=== PATIENT | male | born 1960 | race Caucasian/White ===

== ENCOUNTER 2018-04-05 16:13 | Emergency (ER) | payer OTHER ==
[~2018-04-05] VITALS: Ht 177.8 cm; Wt 81.0 kg
[2018-04-05] MEDS ORDERED: PROPAFENONE 15150 MG PO (16:22)
[2018-04-05] MEDS ORDERED: ZOCOR20 MG PO (16:22)
[2018-04-05] MEDS ORDERED: COZAAR 50 MG TA50 M2 PO (16:23)
[2018-04-05] MEDS ORDERED: COUMADIN 5 MG TA5 M1 PO (16:24)
[2018-04-05] MEDS ORDERED: COUMADIN7.5 MG PO (16:25)
[2018-04-05] MEDS ORDERED: TOPROL XL25 MG PO (16:26)
[2018-04-05 16:38] LABS: HEMATOCRIT 44.8 % (42.0-52.0); HEMOGLOBIN 15.1 gm/dL (14.0-18.0); MCH 32.4 pg (26.0-34.0); MCHC 33.8 g/dL (28.0-37.0); MCV 95.8 fL (80.0-100.0); NUCLEATED RBCS 0 /100WBC; PLATELET COUNT* 131 thou/uL (150-400); RBC 4.68 mil/uL (4.50-6.00); RDW-CV 13.3 % (10.5-14.5); WBC 4.8 thou/uL (4.0-11.0)
[2018-04-05 16:47] LABS: ANION GAP 4 mmol/L (7-16); BUN 22 mg/dL (7-18); CALCIUM 8.3 mg/dL (8.5-10.1); CHLORIDE 100 mmol/L (98-107); CO2 30 mmol/L (21-32); CREATININE 1.1 mg/dL (0.6-1.3); GLUCOSE 104 mg/dL (70-99); POTASSIUM 4.3 mmol/L (3.5-5.1); SODIUM 134 mmol/L (136-145)
[2018-04-05 16:48] LABS: APTT 36.2 Seconds (25.0-31.3); INR 1.5
[2018-04-05 16:54] LABS: ALBUMIN 3.5 g/dL (3.4-5.0); ALKALINE PHOSPHATASE 98 U/L (46-116); SGOT 56 U/L (15-37); SGPT 57 U/L (30-65); TOTAL BILIRUBIN 1.4 mg/dL (<0.1-1.0); TOTAL PROTEIN 7.1 g/dL (6.4-8.2); TROPONIN-I LEVEL <0.06 ng/mL (<0.06)
[2018-04-05 17:21] LABS: ABSOLUTE LYMPHOCYTES 0.7 thou/uL (0.8-5.3); ABSOLUTE MONOCYTES 0.1 thou/uL (0.0-1.2)
[2018-04-05 17:23] LABS: CLUMPED PLTS OCCASIONAL; PLATELET ESTIMATE DECREASED
[2018-04-05] MEDS ORDERED: AUGMENTIN 875-1 EACH PO (17:30)
[2018-04-05 17:33] VITALS: BP 127/49
--- NOTE | 2018-04-06 10:34 | EKG ---
[place] [address] ELECTROCARDIOGRAM REPORT Name: FLORENCIOLIZETTEAMINA Lorna Room: [facility]#: [id number] Admission: 04/05/18 Attend Phys: Discharge: 04/05/18 Date of : 60 Report #: [id number] THIS REPORT FOR: //name// [facility] ED Test Date: 2018-04-05 Test Time: 16:28:35 Pat Name: AMINA MATIAS Department: Room: Gender: M Tube Drawer: Vidhi LEIVA : 1960 Requested By: Rachelle Weldon Order Number: [id number] MD: Zaid Guerra Measurements Intervals [place] Rate: 71 P: 63 MT: 171 QRS: 58 QRSD: 148 T: 16 QT: 406 QTc: 442 Interpretive Statements Sinus rhythm low voltage Anterior infarct, old No previous ECG available for comparison Electronically Signed On 04-06-2018 10:33:49 CDT by Zaid Guerra [email or web address] <ELECTRONICALLY SIGNED> By: Zaid Guerra MD, [facility] 04/06/18 1033 [id number] 27 Zaid Guerra MD, FACC /EPI
== END 2018-04-05 17:33 | disposition home or self-care (01) ==
LOC: M.ERS 16:13
PROVIDERS: Family Medicine; Physician Assistant
DX: R50.9 Fever, unspecified (principal)